=== PATIENT | female | born 1945 | race Caucasian/White ===

== ENCOUNTER 2017-01-16 07:34 | Inpatient (IN) | payer OTHER ==
[2016-12-18 13:20] VITALS: BMI 37.0
--- NOTE | 2016-12-18 13:49 | PAT Medication Instructions ---
Service Date Dec 18, 2016. Current Home Medication List Allopurinol (Zyloprim), 200 MG PO QAM Aspirin (Aspirin Ec), 81 MG PO QAM Cholecalciferol (Vitamin D), 1 TAB PO QAM Hydrochlorothiazide (Hctz *), 12.5 MG PO QAM Levothyroxine Sodium (Levothyroxine Sodium), 1 TAB PO 5XWEEK Levothyroxine Sodium (Levothyroxine Sodium), 1 TAB PO 2XWEEK Lisinopril (Zestril), 30 MG PO QAM Omeprazole (Prilosec), 20 MG PO HS Medication Instructions For Your Scheduled Surgery - Hold the following medications the morning of surgery: Lisinopril (Zestril), 30 MG PO QAM Hydrochlorothiazide (Hctz *), 12.5 MG PO QAM Cholecalciferol (Vitamin D), 1 TAB PO QAM - Take the following medications the morning of surgery with a sip of water: Levothyroxine Sodium (Levothyroxine Sodium), 1 TAB PO 5XWEEK Levothyroxine Sodium (Levothyroxine Sodium), 1 TAB PO 2XWEEK Allopurinol (Zyloprim), 200 MG PO QAM Aspirin (Aspirin Ec), 81 MG PO QAM (okay to continue per surgeon) - Take the following medications as scheduled the night before surgery: Omeprazole (Prilosec), 20 MG PO HS If you have any questions please call us at [phone] or [phone] or [phone]
--- NOTE | 2016-12-18 14:28 | DIAGNOSTIC IMAGING REPORT ---
CHEST 2 VIEWS ROUTINE CLINICAL HISTORY: Preoperative chest COMPARISON STUDY: No previous studies for comparison. FINDINGS: The cardiac and mediastinal contours are normal. There is no evidence of focal pulmonary consolidation. There is no evidence of failure. No pleural effusions are visualized.[ There is a retrocardiac opacity consistent with a hiatal hernia IMPRESSION: No active disease in the chest. Electronically signed by: Davi Atkinson M.D. 12/18/2016 2:26 PM Dictated Date/Time: 12/18/2016 2:26 PM
[2016-12-18 14:52] LABS: BASO % 0.6 %; BASO ABS # 0.04 K/uL (0-0.2); COMPLETE YES; EOS % 2.8 %; HEMATOCRIT 34.6 % (37-47); IG% 0.1 %; LYMPH % 25.4 %; LYMPH ABS # 1.74 K/uL (1.2-3.4); MEAN CELL VOLUME 91.1 fL (80-100); MEAN CORPUSCULAR HEMOGLOBIN 28.2 pg (25-34); MEAN CORPUSCULAR HGB CONC 30.9 g/dl (32-36); MEAN PLATELET VOLUME 9.9 fL (7.4-10.4); MONO % 9.1 %; PLATELET COUNT 256 K/uL (130-400); WHITE BLOOD COUNT 6.84 K/uL (4.8-10.8)
[2016-12-18 15:02] LABS: URINE APPEARANCE CLEAR (CLEAR); URINE BILIRUBIN NEG (NEG); URINE COLOR YELLOW; URINE EPITHELIAL CELL AUTO >30 /lpf (0-5); URINE NITRITE NEG (NEG); URINE SPECIFIC GRAVITY 1.019 (1.000-1.030); UROBILINOGEN NEG (NEG); ZZUR CULT IF INDIC CLEAN CATCH NO
[2016-12-18 15:04] LABS: PARTIAL THROMBOPLASTIN RATIO 1.1; PROTHROMBIN TIME (PATIENT) 10.6 SECONDS (9.0-12.0)
[2016-12-18 15:04] LABS: MANUAL MICROSCOPIC REQUIRED? NO; REVIEW REQ? NO
[2016-12-18 16:24] LABS: ESTIMATED AVERAGE GLUCOSE 128 mg/dl; HA1C FLAG Normal (Normal)
[2016-12-18 17:09] LABS: BUN/CREATININE RATIO 14.5 (10-20); CALCIUM 9.2 mg/dl (8.5-10.1); CREATININE 1.3 mg/dl (0.60-1.20); POTASSIUM 4.4 mmol/L (3.5-5.1)
--- NOTE | 2017-01-15 18:32 | HISTORY & PHYSICAL EXAMINATION ---
DATE OF ADMISSION: 01/16/2017 CHIEF COMPLAINT: Left knee pain. HISTORY OF PRESENT ILLNESS: This is a 71-year-old female patient of Dr. Miller, complaining of chronic left knee pain, longstanding, now progressively getting worse. The patient has failed conservative treatment including intraarticular injections, physical therapy, anti-inflammatories and the use of a brace and a cane. The patient has increased pain with weightbearing activities and her pain does interfere with her activities of daily living. PAST MEDICAL HISTORY: Hypertension, hypothyroidism, acid reflux, and obesity. SOCIAL HISTORY: Nonsmoker and nondrinker. FAMILY HISTORY: Noncontributory. REVIEW OF SYSTEMS: The patient complains of chronic left knee pain and instability. Otherwise, denies any shortness of breath, chest pain, nausea, vomiting or any other joint complaints. MEDICATIONS: 1. Prilosec 20 mg daily. 2. Hydrochlorothiazide 12.5 mg daily. 3. Levothyroxine 100 mcg daily. 4. Allopurinol 100 mg daily. 5. Lisinopril 20 mg daily. 6. Aspirin 81 mg daily. 7. Vitamin D 1000 international units daily. ALLERGIES: No known drug allergies. PHYSICAL EXAMINATION: GENERAL: Well-developed and well-nourished 71-year-old female in no acute distress. She is alert and oriented x3 and pleasant. HEENT: Normocephalic and atraumatic. Extraocular muscles are intact. Pupils are equal and reactive to light. HEART: Regular rate and rhythm. No murmurs appreciated. LUNGS: Clear. ABDOMEN: Soft and nontender. Bowel sounds are present. EXTREMITIES: Left knee reveals crepitation with limited range of motion. She has medial joint line tenderness. She has 5/5 strength. NEUROLOGIC: Neurovascularly, she is intact in her left lower extremity. DIAGNOSES: Left knee end-stage osteoarthritis per clinical and radiographic exam with a history of hypertension, hypothyroidism, acid reflux, and obesity. PLAN: The patient was advised of her diagnoses. Indications, risks, benefits, and postop course have all been reviewed. The patient wishes to proceed with a left total knee arthroplasty. Necessary consent forms, preoperative testing and clearances will be obtained. ANAMARIA
[2017-01-16] VITALS (9 sets, daily range): BP systolic 115–153; BP diastolic 70–93; PULSE 73–85; TEMP 36.4–36.7; O2SAT 92–97; Ht 157.5 cm; Wt 93.4 kg
[~2017-01-16] VITALS: Ht 157.5 cm; Wt 93.4 kg
[~2017-01-16 07:34] MED LIST: ACETAMINOPHEN 500 MG TAB PO SCH; ALLO100T PO; ASPI81TA28 PO; BUPIVACAINE 0.25% 30 ML VIAL ONE; BUPIVACAINE 0.5 % 5 MG/1 ML PF 10ML VIAL ONE; CEFAZOLIN 2000 MG/60 ML D5W 60 ML IV SCH; CHOL20009 PO; CeleBREX 200 MG CAP PO SCH; DEXAMETHASONE 4 MG TAB PO SCH; FAMOTIDINE 20 MG TAB PO SCH; GABAPENTIN 300 MG CAP PO SCH; HYDC25 PO; LACTATED RINGER'S 1000ML 1,000 ML IV SCH; LACTATED RINGER'S 1000ML IV SCH; LEVO100T7 PO; LEVO50TA6 PO; LISI-725 PO; METOCLOPRAMIDE HCL 10 MG TAB PO SCH; PRLSR20 PO; ROPIVACAINE 5MG/ML 30 ML 150 MG, BUPIVACAINE/EPINEPHR 0.5% MPF 30 ML, KETOROLAC TROMETH... INFIL SCH
[2017-01-16] MEDS ORDERED: MIDAZOLAM HCL 1 MG/ML 2ML VIAL ONE ×3 (08:09→12:19)
--- NOTE | 2017-01-16 08:40 | History & Physical Bridge Note ---
H&P Re-Evaluation Bridge Note: I have examined the patient, reviewed the History & Physical and in the interval since the performance of the History & Physical I have noted the following changes of clinical significance: No changes noted
[2017-01-16] MEDS ORDERED: FENTANYL CITRATE INJ 50 MCG/1 ML 2 ML VIAL IV PRN (08:45)
[2017-01-16] MEDS ORDERED: ONDANSETRON INJ 2 MG/ML 2 ML VIAL IV PRN ×2 (08:45→13:30)
[2017-01-16] MEDS ORDERED: EpHEDrine SULFATE INJ 50 MG/ML AMP IV PRN (08:45)
[2017-01-16] MEDS ORDERED: POVIDONE-IODINE OP SOLN 30 ML BTL ONE (08:45)
[2017-01-16] MEDS ORDERED: BACITRACIN 50000 UNIT VIAL ONE (08:45)
[2017-01-16] MEDS ORDERED: ATROPINE SULFATE 0.1 MG/ML 5ML SYR IV PRN (08:45)
[2017-01-16] MEDS ORDERED: ORTHO JOINT ANESTHETIC ONE (08:45)
[2017-01-16] MEDS ORDERED: PROPOFOL IV EMULSION 10 MG/ML 20 ML VIAL IV ONE (08:46)
[2017-01-16] MEDS: TRANEXAMIC ACID INJ 1,000 MG in SODIUM CHLORIDE 0.9% 100ML 100 ML IV SCH ×2 (10:54→14:38)
[2017-01-16] MEDS ORDERED: BUPIVACAINE 0.5 % 5 MG/1 ML PF 10ML VIAL ONE (11:31)
[2017-01-16] MEDS ORDERED: ONDANSETRON INJ 2 MG/ML 2 ML VIAL ONE (11:58)
[2017-01-16] MEDS ORDERED: PHENYLEPHRINE 100MCG/ML 5ML SYR ONE (12:51)
--- NOTE | 2017-01-16 13:03 | [facility] Post Operative Brief Note ---
Immediate Operative Summary Operative Date Jan 16, 2017. Pre-Operative Diagnosis Left Knee End-Stage Osteoarthritis Post-Operative Diagnosis Left Knee End-Stage Osteoarthritis Procedure(s) Performed Left Total Knee Arthroplasty Surgeon Dr Miller Automotive Technician Instructor Surgeon(s) Jean Paul Sanchez PA-C Estimated Blood Loss 5cc Findings grade 4 djd medial varus knee Specimens As Per Surgeon A. Left Knee Bone and Tissue Drains 2 hemovac Anesthesia spinal regional block and othomix Complication(s) None Disposition Recovery Room / PACU
[2017-01-16] MEDS ORDERED: MoRPHine SULFATE 4 MG/ML 1 ML CARP\\VIAL IV PRN (13:30)
[2017-01-16] MEDS ORDERED: ALUMINUM/MAGNESIUM/SIMETH (MAALOX MAX) 30 ML UDC PO PRN (13:30)
[2017-01-16] MEDS ORDERED: MoRPHine SULFATE 2 MG/ML CARP IV PRN (13:30)
[2017-01-16] MEDS ORDERED: MAGNESIUM HYDROXIDE SUSP 30 ML UDC PO PRN (13:30)
[2017-01-16] MEDS ORDERED: BISACODYL 10 MG SUPP PR PRN (13:30)
[2017-01-16] MEDS ORDERED: OXYCODONE HCL IR 5 MG TAB (IMMEDIATE RELEASE) PO PRN (13:30)
[2017-01-16] MEDS ORDERED: TRAMADOL HCL 50 MG TAB PO PRN (13:30)
--- NOTE | 2017-01-16 13:43 | Anesthesiology Progress Note ---
Anesthesia Post Op Note Date & Time Jan 16, 2017 at 13:43 Vital Signs Pain Intensity: 0 Vital Signs Past 12 Hours Date Time Temp Pulse Resp B/P (MAP) Pulse Ox O2 Delivery O2 Flow Rate FiO2 01/16/17 13:35 83 20 135/77 96 Mask 10 01/16/17 13:25 83 20 141/73 98 Mask 10 01/16/17 13:18 37.4 89 20 145/67 97 Mask 10 01/16/17 08:02 36.7 77 18 153/93 96 Room Air Notes Mental Status: alert / awake / arousable, participated in evaluation Pt Amnestic to Procedure: Yes Nausea / Vomiting: adequately controlled Pain: adequately controlled Airway Patency, RR, SpO2: stable & adequate BP & HR: stable & adequate Hydration State: stable & adequate Neuraxial Anesthesia: was administered, sensory block is resolving Anesthetic Complications: no major complications apparent
--- NOTE | 2017-01-16 13:45 | DIAGNOSTIC IMAGING REPORT ---
LEFT KNEE 1 OR 2 VIEWS ROUTINE CLINICAL HISTORY: AP/LATERAL IN PACU LEFT KNEE joint replacement COMPARISON: None. DISCUSSION: Total left knee arthroplasty. Good contact between prosthetic and underlying bone. Surgical drains are in position. Lucencies overlying the medial femoral epicondyles and medial tibial plateau felt to be overlap artifact. These are not seen on the lateral projections. Expected soft tissue postoperative change IMPRESSION: Anatomic alignment status post total joint replacement. The above report was generated using voice recognition software. It may contain grammatical, syntax or spelling errors. Electronically signed by: Reynaldo Jacome M.D. 01/16/2017 1:44 PM Dictated Date/Time: 01/16/2017 1:42 PM
[2017-01-16] MEDS ORDERED: SIMETHICONE 80 MG CHEW PO PRN (15:00)
--- NOTE | 2017-01-16 15:09 | Medical Consult ---
Consultation Date of Consultation: Jan 16, 2017. Attending Physician: Cash Miller M.D. Family History FH: CAD (coronary artery disease) MOTHER Hypertension MOTHER Social History Smoking Status: Never Smoker Smokeless Tobacco Use: No Alcohol Use: none Marital Status: Allergies Coded Allergies: No Known Allergies (Verified , 01/16/17) Home Medications Active Reported Zyloprim (Allopurinol) 100 Mg Tab 200 Mg PO QAM Levothyroxine Sodium 50 Mcg Tab 1 Tab PO 2XWEEK 90 Days AM Sat Levothyroxine Sodium 100 Mcg Tab 1 Tab PO 5XWEEK 90 Days AM-Sat Vitamin D (Cholecalciferol) 2,000 Unit Tab 1 Tab PO QAM Aspirin Ec (Aspirin) 81 Mg Tab 81 Mg PO QAM Prilosec (Omeprazole) 20 Mg Capcr 20 Mg PO HS Zestril (Lisinopril) 20 Mg Tab 30 Mg PO QAM Hctz * (Hydrochlorothiazide) 25 Mg Tab 12.5 Mg PO QAM Current Inpatient Medications Current Inpatient Medications Medications (Trade) Dose Ordered Sig/Chelo Route Start Time Stop Time Status Last Admin Dose Admin Cefazolin Sodium 60 ml @ 100 mls/hr PREOP IV 01/16/17 06:00 01/16/17 18:00 01/16/17 11:15 100 MLS/HR Acetaminophen (Tylenol Tab) 1,000 mg PREOP PO 01/16/17 06:00 01/16/17 18:00 01/16/17 08:21 1,000 MG Celecoxib (CeleBREX CAP) 200 mg PREOP PO 01/16/17 06:00 01/16/17 18:00 01/16/17 08:20 200 MG Dexamethasone (Decadron Tab) 8 mg PREOP PO 01/16/17 06:00 01/16/17 18:00 01/16/17 08:22 8 MG Famotidine (Pepcid Tab) 20 mg PREOP PO 01/16/17 06:00 01/16/17 18:00 01/16/17 08:20 20 MG Gabapentin (Neurontin Cap) 300 mg PREOP PO 01/16/17 06:00 01/16/17 18:00 01/16/17 08:21 300 MG Metoclopramide HCl (Reglan Tab) 10 mg PREOP PO 01/16/17 06:00 01/16/17 18:00 01/16/17 08:21 10 MG Tranexamic Acid 1000 mg/Sodium Chloride 110 ml @ 660 mls/hr TODAY@06,0630 IV 01/16/17 06:00 01/16/17 18:00 01/16/17 10:54 660 MLS/HR Allopurinol (Zyloprim Tab) 200 mg QAM PO 01/17/17 09:00 02/16/17 08:59 Levothyroxine Sodium (Synthroid Tab) 100 mcg DAILY PO 01/17/17 09:00 02/16/17 08:59 UNV Lisinopril (Zestril Tab) 30 mg QAM PO 01/17/17 09:00 02/16/17 08:59 UNV Cholecalciferol (Vitamin D Tab) 2,000 inter.unit QAM PO 01/17/17 09:00 02/16/17 08:59 UNV Morphine Sulfate (MoRPHine SULFATE INJ) 2 mg Q4HWA PRN IV 01/16/17 13:30 01/30/17 13:29 Morphine Sulfate (MoRPHine SULFATE INJ) 4 mg Q4HWA PRN IV 01/16/17 13:30 01/30/17 13:29 Potassium Chloride/Dextrose/ Sod Cl 1,000 ml @ 100 mls/hr Q10H IV 01/16/17 15:30 01/17/17 15:29 Cefazolin Sodium 2000 mg/Dextrose 60 ml @ 100 mls/hr Q8H IV 01/16/17 13:30 01/16/17 22:05 UNV Oxycodone HCl (Roxicodone Immediate Rel Tab) 1 TABLET FOR PAIN RATING... Q4H PRN PO 01/16/17 13:30 01/30/17 13:29 Acetaminophen (Tylenol Tab) 1,000 mg Q8H PO 01/16/17 13:30 02/15/17 13:29 UNV Magnesium Hydroxide (Milk Of Magnesia Susp) 30 ml Q6H PRN PO 01/16/17 13:30 02/15/17 13:29 Bisacodyl (Dulcolax Supp) 10 mg DAILY PRN AL 01/16/17 13:30 02/15/17 13:29 Senna (Senokot Tab) 17.2 mg HS PO 01/16/17 21:00 02/15/17 20:59 UNV Docusate Sodium (coLACE CAP) 100 mg BID PO 01/16/17 21:00 02/15/17 20:59 UNV Al Hydrox/Mg Hydrox/Simethicone (Maalox Max Susp) 15 ml Q4H PRN PO 01/16/17 13:30 02/15/17 13:29 Multivitamins (Multivitamin Tab) 1 tab QAM PO 01/17/17 09:00 02/16/17 08:59 UNV Ondansetron HCl (Zofran Inj) 4 mg Q6H PRN IV 01/16/17 13:30 02/15/17 13:29 Ferrous Gluconate (Ferrous Gluconate Tab) 324 mg TIDM PO 01/16/17 17:45 02/15/17 17:59 UNV Pantoprazole Sodium (Protonix Tab) 40 mg QAM PO 01/17/17 09:00 02/16/17 08:59 UNV Tramadol HCl (Ultram Tab) 1 tablet for pain rating... Q4H PRN PO 01/16/17 13:30 02/15/17 13:29 Aspirin (Ecotrin Tab) 81 mg BID PO 01/16/17 21:00 02/15/17 20:59 UNV Review of Systems Constitutional: No fever Eyes: No worsening of vision, No eye pain ENT: No sore throat Respiratory: No cough, No shortness of breath, No dyspnea at rest, No hemoptysis Cardiovascular: No chest pain, No palpitations Abdomen: No pain, No nausea, No vomiting Musculoskeletal: No calf pain Genitourinary - Female: No dysuria Neurologic: No numbness/tingling Psychiatric: No substance abuse Endocrine: No fatigue Physical Exam Date Time Temp Pulse Resp B/P (MAP) Pulse Ox O2 Delivery O2 Flow Rate FiO2 01/16/17 15:00 78 16 136/83 (100) 97 Nasal Cannula 2.0 01/16/17 14:30 75 16 143/87 (105) 96 Room Air 01/16/17 14:00 36.4 84 16 145/80 (101) 95 Nasal Cannula 2.0 01/16/17 14:00 Nasal Cannula 2.0 01/16/17 14:00 95 Nasal Cannula 2.0 01/16/17 13:45 37.1 80 16 148/74 96 Nasal Cannula 2 01/16/17 13:35 83 20 135/77 96 Mask 10 01/16/17 13:25 83 20 141/73 98 Mask 10 01/16/17 13:18 37.4 89 20 145/67 97 Mask 10 01/16/17 08:02 36.7 77 18 153/93 96 Room Air General Appearance: no apparent distress Head: normocephalic, atraumatic Eyes: normal inspection, EOMI ENT: pharynx normal Neck: no JVD Respiratory/Chest: chest non-tender, lungs clear, normal breath sounds, no respiratory distress, no accessory muscle use Cardiovascular: regular rate, rhythm, no edema, no JVD, no murmur Abdomen/GI: normal bowel sounds, non tender, soft Back: normal inspection, no muscle spasm Extremities/Musculoskelatal: no pedal edema Neurologic/Psych: alert, normal mood/affect, oriented x 3 Skin: no rash Laboratory Results Last 24 Hours Test 01/16/17 13:55 Assessment & Plan 71 year old F under orthopedic service s/p left total knee arthoplasty. Hospitalist Medicine service consulted on post-op care. Patient is awake and alert breathing comfortably on room air and answering questions, not in pain. Wound vac is on left leg and which is the operated leg and in leg supports. Distal pulses are intact and patient able to move toes. Lungs are clear and heart rate is regular. Medications as entered in the computer records were reviewed with the patient: Zyloprim (Allopurinol) 100 Mg Tab 200 Mg PO QAM Levothyroxine Sodium 50 Mcg Tab 1 Tab PO 2XWEEK 90 Days AM Sat Levothyroxine Sodium 100 Mcg Tab 1 Tab PO 5XWEEK 90 Days AM-Sat SUN Vitamin D (Cholecalciferol) 2,000 Unit Tab 1 Tab PO QAM Aspirin Ec (Aspirin) 81 Mg Tab 81 Mg PO QAM Prilosec (Omeprazole) 20 Mg Capcr 20 Mg PO HS Zestril (Lisinopril) 20 Mg Tab 30 Mg PO QAM Hctz * (Hydrochlorothiazide) 25 Mg Tab 12.5 Mg PO QAM -Please make following changes to Levothyroxine regimen: switch to Levothyroxine 50 mcg on every Saturday AM and Thursday AM and continue 100 mcg daily in the AM for other days -Please check renal function comprehensive metabolic panel before restarting HCTZ diuretic for blood pressure control. Avoid diuretics if in acute kidney injury -Please check post-op CBC. Of note that patient has had history of normocytic anemia as outpatient and that that does not appear to be recent iron studies in outpatient electronic medical records.
[2017-01-16] MEDS: D5W AND 1/2NSS + 20MEQ KCL 1,000 ML IV SCH (16:14)
[2017-01-16] MEDS: FERROUS GLUCONATE 324 MG TAB PO SCH (17:56)
[2017-01-16] MEDS: CEFAZOLIN IV 2,000 MG in DEXTROSE 5% 50ML 50 ML IV SCH (20:33)
[2017-01-16] MEDS: SENNA 8.6 MG TAB PO SCH (20:36)
[2017-01-16] MEDS: ASPIRIN 81 MG ECTAB PO SCH (20:36)
[2017-01-16] MEDS: DOCUSATE SODIUM 100 MG CAP PO SCH (20:36)
[2017-01-16] MEDS: ACETAMINOPHEN 500 MG TAB PO SCH (21:40)
[2017-01-17] VITALS (7 sets, daily range): BP systolic 110–174; BP diastolic 70–85; PULSE 61–80; TEMP 36.3–36.7; O2SAT 94–98
--- NOTE | 2017-01-17 00:25 | OPERATIVE REPORT ---
DATE OF OPERATION: 01/16/2017 INDICATION FOR PROCEDURE: The patient is a 71-year-old female who presents with chronic left knee osteoarthritis. She has an x-ray demonstrating varus knee, [id number] medial compartment. She has failed conservative management. PREOPERATIVE DIAGNOSIS: End-stage osteoarthritis, left knee. POSTOPERATIVE DIAGNOSIS: Same. PROCEDURE: Left total knee arthroplasty. SURGEON: Dr. Miller. RESEARCH ASSISTANT PROFESSOR: KEI Hall. ANESTHESIA: Spinal sedation, adductor nerve block and Orthomix. OPERATIVE PROCEDURE: The patient was taken to the operating room and anesthetized under anesthesia as dictated. She was placed supine on the operating room table. Pneumatic tourniquet was placed on the left upper obese thigh. A sandbag was placed under her hip. Her left lower extremity was prepped and draped in sterile fashion. Exam demonstrates she had 0 through 125 degrees range of motion. She had no instability. Left leg was sterilely prepped and draped with ChloraPrep. The leg was elevated, exsanguinated with Esmarch bandage. Pneumatic tourniquet was raised to 350 mmHg because of her obesity. Anterior incision was made across left knee. Skin was incised sharply. Subcutaneous flaps were elevated. Incision was made through medial retinaculum, extended up into the mid third of the quadriceps tendon and extended down to the medial tibial tubercle. Intra-articular findings demonstrated that she had grade 4 DJD medial compartment, bone on bone medial compartment. She had some grade 3 wear in the patellofemoral joint as well. I used the [employer] Journey 2.0 total knee arthroplasty system using Visionaire MRI templating size for a 3 femur, 3 tibia. To expose the knee, the infrapatellar fat pad was resected. The lateral synovial bands were released. The fat pad over the anterior femur was resected and the cruciate ligaments and meniscal remnants were resected. The femur was exposed. The custom femoral cutting block was pinned in position. Distal femoral cut was made. This allowed us to extend the knee, navneet the patella easily and a subperiosteal peel lateral release around the patella. The patella width was measured and width was reproduced using a freehand cut technique and a 32 mm patellar component. Drill holes for the patella were made and the excess lateral facet was beveled off to prevent any impingement. Then attention was taken back to the femur and the 5-in-1 cutting block was pinned in position and the anterior, posterior and chamfer cuts were made. Then the tibia was subluxed and the tibial cutting block was pinned in position and the proximal tibial cut was made with the oscillating saw. Then we used the laminar medical biller/coder to assess ligamentous balance and the ligaments were balanced in extension and flexion. The tibia was re-exposed and the 3 tibial baseplate was externally rotated in line with the tibial tubercle and pinned in position. The punch for the stem was used. Then the femoral trial was inserted and centered as the size 3 femoral trial. Then the notch cutting devices were used. A collet was placed and then an 11 insert gave balanced ligaments through full range of motion and patella tracked centrally. Trials were removed. The Orthomix anesthetic cocktail was injected per protocol. Then after copious irrigation with pulsatile lavage antibiotic solution and bacitracin, the final components were cemented with Simplex G cement. The final components were the 3 Oxinium left posterior stabilized [employer]hew Journey 2.0 femoral component, the 3 primary tibial baseplate, the 30 mm high flex posterior stabilized poly insert and the 32 mm patella. The Betadine soak was used per protocol. The knee was placed in full extension, allowing the cement to cure. Then the knee was again copiously irrigated with antibiotic solution and bacitracin. The quadriceps tendon and medial retinaculum were closed with interrupted [id number] #1 Vicryl sutures. The subcutaneous tissues closed with interrupted 2-0 Vicryl, skin closed with alec. Sterile dressings were applied and the patient tolerated the procedure well. KEI Hall was my administrative assistant office manager. He functioned as administrative assistant office manager for the tasks of soft tissue retraction, instrument management and he performed the fascial, subcutaneous and skin closure and will participate in the postoperative care of the patient. I attest to the content of the Intraoperative Record and any orders documented therein. Any exception s are noted below.
[2017-01-17] MEDS: D5W AND 1/2NSS + 20MEQ KCL 1,000 ML IV SCH ×2 (01:37→11:30)
[2017-01-17] MEDS: CEFAZOLIN IV 2,000 MG in DEXTROSE 5% 50ML 50 ML IV SCH (04:08)
[2017-01-17] MEDS: ACETAMINOPHEN 500 MG TAB PO SCH ×3 (05:39→21:18)
[2017-01-17 05:43] LABS: HEMATOCRIT 28.7 % (37-47); MEAN CELL VOLUME 91.1 fL (80-100); MEAN CORPUSCULAR HEMOGLOBIN 28.6 pg (25-34); MEAN CORPUSCULAR HGB CONC 31.4 g/dl (32-36); MEAN PLATELET VOLUME 10.6 fL (7.4-10.4); PLATELET COUNT 220 K/uL (130-400); RED BLOOD COUNT 3.15 M/uL (4.2-5.4); WHITE BLOOD COUNT 13.28 K/uL (4.8-10.8)
[2017-01-17] MEDS ORDERED: LEVOTHYROXINE 50 MCG TAB PO SCH (06:00)
[2017-01-17 06:15] LABS: BUN/CREATININE RATIO 12.2 (10-20); CALCIUM 8.2 mg/dl (8.5-10.1); CREATININE 1.4 mg/dl (0.60-1.20); POTASSIUM 4.3 mmol/L (3.5-5.1)
--- NOTE | 2017-01-17 07:44 | Orthopedic Progress Note ---
Orthopedic Progress Note Date of Service Jan 17, 2017. Subjective Post OP Day: 1 Reports: feeling well, Denies: chest pain, SOB, nausea / vomiting, light headedness, calf pain Objective calves soft nontender, N/V intact, dressing C/D/I, A&O x3, toes mobile, hemovac drainage (225/150cc per shift) Date Time Temp Pulse Resp B/P (MAP) Pulse Ox O2 Delivery O2 Flow Rate FiO2 01/17/17 07:19 36.3 75 16 110/70 (83) 94 Room Air 01/17/17 03:05 36.7 77 18 120/71 (87) 95 Room Air 01/16/17 23:35 Room Air 01/16/17 23:09 36.4 75 17 115/70 (85) 95 Room Air 01/16/17 19:33 36.5 73 16 149/83 (105) 94 Room Air 01/16/17 17:04 36.4 82 16 136/80 (98) 96 Room Air 01/16/17 16:05 36.5 75 16 137/85 (102) 97 Room Air 01/16/17 15:45 Room Air 01/16/17 15:00 78 16 136/83 (100) 97 Nasal Cannula 2.0 01/16/17 14:30 75 16 143/87 (105) 96 Room Air 01/16/17 14:00 36.4 84 16 145/80 (101) 95 Nasal Cannula 2.0 01/16/17 14:00 Nasal Cannula 2.0 01/16/17 14:00 95 Nasal Cannula 2.0 01/16/17 13:45 37.1 80 16 148/74 96 Nasal Cannula 2 01/16/17 13:35 83 20 135/77 96 Mask 10 01/16/17 13:25 83 20 141/73 98 Mask 10 01/16/17 13:18 37.4 89 20 145/67 97 Mask 10 01/16/17 08:02 36.7 77 18 153/93 96 Room Air Laboratory Results 24 Hours: Test 01/17/17 05:03 Hematocrit 28.7 % Hemoglobin 9.0 g/dL Assessment & Plan Assessment: POD#1 sp left TKA Inhouse Planning Pain Management: Celebrex, PO Tylenol, Oxy IR DVT Prophylaxis: TEDs, SCDs, ASA Discharge Planning Discharge Planning: home with oppt ([facility] DC TOMORROW WITH PT AT [facility].)
[2017-01-17] MEDS: FERROUS GLUCONATE 324 MG TAB PO SCH ×3 (08:40→17:26)
[2017-01-17] MEDS: DOCUSATE SODIUM 100 MG CAP PO SCH ×2 (08:40→21:17)
[2017-01-17] MEDS: ASPIRIN 81 MG ECTAB PO SCH ×2 (08:40→21:17)
[2017-01-17] MEDS: CHOLECALCIFEROL 1000 INTER.UNIT TAB PO SCH (08:41)
[2017-01-17] MEDS: MULTIVITAMIN TAB PO SCH (08:41)
[2017-01-17] MEDS: PANTOprazole SOD 40 MG TAB PO SCH (08:41)
[2017-01-17] MEDS: ALLOPURINOL 100 MG TAB PO SCH (08:42)
[2017-01-17] MEDS ORDERED: LISINOPRIL 20 MG TAB PO SCH (09:00)
[2017-01-17] MEDS ORDERED: LEVOTHYROXINE 100 MCG TAB PO SCH (09:00)
--- NOTE | 2017-01-17 18:21 | Progress Note ---
Internal Med Progress Note Date of Service: Jan 17, 2017. Provider Documentation: SUBJECTIVE: feels fine , minimum pain on left knee doing well with PT/OT OBJECTIVE: Vital Signs-as noted below Exam: General-no sign of distress Eyes-sclera non icteric ENT-NAD Neck-no JVD Lungs-CTA Heart-regular S1/S2 Abdomen-soft, non tender Extremities-s/p left knee surgery , drain present Neuro-AAO x3, no focal deficit Lab data as noted below. ASSESSMENT & PLAN: DJD OF LEFT KNEE : S/P TKA POD #1 recovering well post op cont PT/OT INDY ON CKD STAGE 3 Cr mildly elevated form baseline to 1.4 hold ACEI HCTZ been on hold already repeat PRP in AM ACUTE BLOOD LOSS ANEMIA : due to post op status HB stable in 10 follow no indication for transfusion HTN ACEI and HCTZ been on hold for INDY monitor antihypertensives can be resumed in AM if renal function improves HYPOTHYROIDISM : cont levothyroxine DVT PROPHYLAXIS Aspirin 81 mg BID per Ortho protocol DISPOSITION Per primary team Vital Signs: Date Time Temp Pulse Resp B/P (MAP) Pulse Ox O2 Delivery O2 Flow Rate FiO2 01/17/17 15:45 36.7 80 18 173/82 (112) 98 Room Air 01/17/17 10:32 36.5 65 16 153/84 (107) 98 Room Air 01/17/17 10:29 71 98 01/17/17 08:30 Room Air 01/17/17 07:19 36.3 75 16 110/70 (83) 94 Room Air 01/17/17 03:05 36.7 77 18 120/71 (87) 95 Room Air 01/16/17 23:35 Room Air 01/16/17 23:09 36.4 75 17 115/70 (85) 95 Room Air 01/16/17 19:33 36.5 73 16 149/83 (105) 94 Room Air Lab Results: Results Past 24 Hours Test 01/17/17 05:03 Range/Units White Blood Count 13.28 4.8-10.8 K/uL Red Blood Count 3.15 4.2-5.4 M/uL Hemoglobin 9.0 12.0-16.0 g/dL Hematocrit 28.7 37-47 % Mean Corpuscular Volume 91.1 80-100 fL Mean Corpuscular Hemoglobin 28.6 25-34 pg Mean Corpuscular Hemoglobin Concent 31.4 32-36 g/dl RDW Standard Deviation 51.7 36.4-46.3 fL RDW Coefficient of Variation 15.4 11.5-14.5 % Platelet Count 220 130-400 K/uL Mean Platelet Volume 10.6 7.4-10.4 fL Sodium Level 140 136-145 mmol/L Potassium Level 4.3 3.5-5.1 mmol/L Chloride Level 108 98-107 mmol/L Carbon Dioxide Level 29 21-32 mmol/L Anion Gap 3.0 3-11 mmol/L Blood Urea Nitrogen 17 7-18 mg/dl Creatinine 1.40 0.60-1.20 mg/dl Est Creatinine Clear Calc Drug Dose 39.8 ml/min Estimated GFR () 44.0 Estimated GFR (Non- 38.0 BUN/Creatinine Ratio 12.2 10-20 Random Glucose 148 70-99 mg/dl Calcium Level 8.2 8.5-10.1 mg/dl Hepatitis C Antibody Screen NEG NEG
[2017-01-17] MEDS: SENNA 8.6 MG TAB PO SCH (21:30)
[2017-01-18] MEDS ORDERED: LEVOTHYROXINE 100 MCG TAB PO SCH (06:00)
[2017-01-18] MEDS: ACETAMINOPHEN 500 MG TAB PO SCH (06:01)
[2017-01-18 06:19] VITALS: BP 167/77; PULSE 70; TEMP 36.7; O2SAT 97
[2017-01-18 06:40] LABS: BUN/CREATININE RATIO 13.6 (10-20); CREATININE 1.3 mg/dl (0.60-1.20)
--- NOTE | 2017-01-18 08:11 | Orthopedic Progress Note ---
Orthopedic Progress Note Date of Service Jan 18, 2017. Subjective Post OP Day: 2 Reports: feeling well, Denies: chest pain, SOB, nausea / vomiting, light headedness, calf pain Objective calves soft nontender, N/V intact, dressing C/D/I (SILVERLON), A&O x3, toes mobile Date Time Temp Pulse Resp B/P (MAP) Pulse Ox O2 Delivery O2 Flow Rate FiO2 01/18/17 07:15 Room Air 01/18/17 06:19 36.7 70 16 167/77 (107) 97 Room Air 01/17/17 23:57 Room Air 01/17/17 23:03 36.5 61 16 159/75 (103) 96 Room Air 01/17/17 22:03 143/77 (99) 01/17/17 16:00 Room Air 01/17/17 15:45 36.7 80 18 173/82 (112) 98 Room Air 01/17/17 10:32 36.5 65 16 153/84 (107) 98 Room Air 01/17/17 10:29 71 98 01/17/17 08:30 Room Air Assessment & Plan Assessment: POD#2 sp left TKA Inhouse Planning Pain Management: Celebrex, PO Tylenol, Oxy IR DVT Prophylaxis: TEDs, SCDs, ASA Discharge Planning Discharge Planning: home with oppt (DC HOME TOMORROW)
[2017-01-18 08:13] VITALS: BP 160/78; PULSE 110; TEMP 36.4; O2SAT 97
[2017-01-18] MEDS ORDERED: ACET-24 PO (08:13)
[2017-01-18] MEDS ORDERED: ONDA8TAB6 PO (08:13)
[2017-01-18] MEDS ORDERED: ASPI81TA28 PO (08:13)
[2017-01-18] MEDS ORDERED: RXC5 PO (08:13)
--- NOTE | 2017-01-18 08:14 | Discharge Instructions ---
Discharge Instructions Date of Service Jan 18, 2017. Admission Reason for Admission: Left Knee Degenerative Joint Disease Discharge Discharge Diagnosis / Problem: SP LEFT TKA Discharge Goals Goal(s): Decrease discomfort, Improve function, Increase independence Activity Recommendations Activity Limitations: per Instructions/Follow-up section . Instructions / Follow-Up Instructions / Follow-Up ACTIVITY RECOMMENDATIONS: SELF CARE INSTRUCTIONS AFTER TOTAL KNEE REPLACEMENT A. You may need to continue a physical therapy program after discharge from the hospital. There are several options available to you. Your doctor will assist you in selecting the best one for you. 1. An out-patient facility 2 to 3 times a week for therapy or home therapy. 2. Continue working on all exercises taught to you in the hospital. Your goals should be to increase bending of your knee to 90 degrees and beyond and to fully straighten your knee. B. You may progress at your own pace from walking with a walker or crutches to a cane; then to no assistive devices. C. Make walking a part of your daily routine. Be up as much as comfortable with rest periods throughout the day. Rest with leg elevation is very important. Use the ice wrap frequently for the first 3-4 weeks. D. There are no restrictions on activities. You may ride in a car, shop, participate in clinical laboratory assistant and all social activities. E. Wear the long elastic stockings (JANELLE hose) 20 hours a day for 2 weeks after surgery. They can be removed several times a day for laundering and for a bath. F. You may shower, no tub baths until cleared by your doctor. SPECIAL CARE INSTRUCTIONS: VERY IMPORTANT TO READ AND REVIEW A. There are a few signs you need to watch for after you are home. Call [facility] [place] if you notice any of the followin. Increased severe knee pain. Some pain is expected especially when you exercise. 2. Increased swelling in your leg or knee; pain or swelling of the calf muscle in either lower leg. 3. Any fluid drainage from the incision. 4. Shortness of breath or chest pain. B. Please call [facility] [place] at if you have any concerns or questions about your operation or recovery. The doctor or his nurse will return your call promptly. C. You must take antibiotics before dental work, bladder, bowel or other surgery. Your doctor will provide you with a permanent care to carry describing this precaution. IMPORTANT: * REMEMBER TO TAKE ASPIRIN, 81 MG, TWICE DAILY FOR 4 WEEKS UNLESS OTHERWISE DIRECTED. THIS IS YOUR BLOOD THINNER. * HIGH RISK PATIENTS MAY BE PRESCRIBED A STRONGER BLOOD THINNER. THIS WILL BE PROVIDED AT DISCHARGE. * CALL IF INCREASED PAIN, REDNESS, DRAINAGE OR FEVER GREATER THAT 101. * WEAR JANELLE HOSE 20 HOURS PER DAY FOR 2 WEEKS. * YOU MAY HAVE A LARGE BAND-AID LIKE DRESSING (SILVERON). THIS WILL REMAIN ON YOUR INCISION FOR 7 DAYS, THEN CAN BE REMOVED. IF INCISION IS LEAKING THROUGH DRESSING, CALL THE OFFICE . FOLLOW UP VISIT: If appointment is not already scheduled: Please call [facility] [place] to make a follow-up appointment for 2 weeks after your surgery at . Current Hospital Diet Patient's current hospital diet: Regular Diet Discharge Diet Recommended Diet: Regular Diet Procedures Procedures Performed: Left Total Knee Arthroplasty Pending Studies Studies pending at discharge: no Laboratory Results Hemoglobin A1c Test 12/18/16 13:55 Range/Units Estimated Average Glucose 128 mg/dl Hemoglobin A1c 6.1 H 4.5-5.6 % Medical Emergencies . Who to Call and When: Medical Emergencies: If at any time you feel your situation is an emergency, please call [phone] immediately. . Non-Emergent Contact Non-Emergency issues call your: Surgeon . "Provider Documentation" section prepared by Radha Botello. . VTE Core Measure Inpt VTE Proph given/why not?: Other Anticoagulation, T.E.D. Stockings, SCD's
[2017-01-18 08:15] VITALS: O2SAT 97
[2017-01-18 08:49] VITALS: BP 160/78; PULSE 110; TEMP 36.4; O2SAT 97
[2017-01-18] MEDS: CHOLECALCIFEROL 1000 INTER.UNIT TAB PO SCH (08:58)
[2017-01-18] MEDS: ALLOPURINOL 100 MG TAB PO SCH (08:58)
[2017-01-18] MEDS: FERROUS GLUCONATE 324 MG TAB PO SCH (08:59)
[2017-01-18] MEDS: PANTOprazole SOD 40 MG TAB PO SCH (08:59)
[2017-01-18] MEDS: MULTIVITAMIN TAB PO SCH (08:59)
[2017-01-18] MEDS: DOCUSATE SODIUM 100 MG CAP PO SCH (09:12)
[2017-01-18] MEDS: ASPIRIN 81 MG ECTAB PO SCH (10:20)
--- NOTE | 2017-01-18 13:16 | DISCHARGE SUMMARY ---
DISCHARGE DIAGNOSIS: Degenerative joint disease left knee. SECONDARY DIAGNOSES: Hypertension, hypothyroidism, GERD, obesity. CONSULTS: Abran Kern M.D. COMPLICATIONS: None. PROCEDURES: Left total knee arthroplasty performed by Dr. Miller on 01/16/2017. BRIEF HISTORY: As dictated in history and physical. HOSPITAL SUMMARY: The patient was admitted on the above date and had the above-noted surgery performed which he tolerated well. On the first postoperative day, the patient was feeling well and had no complaints. Calves were soft, nontender, neurovascularly intact. Dressings clean, dry and intact. Toes were mobile. Vital signs were stable. She is afebrile. Hemoglobin was 9.0. She was started on physical therapy protocol and continued on DVT prophylaxis and pain management and medical management. By her second postoperative day, she was feeling well and had no complaints. Calves were soft, nontender. Neurovascular was intact. Dressings were clean, dry and intact. Toes were mobile. Vital signs were stable and she was afebrile. She was progressing well with her PT and it was felt she could be discharged to home. For further review, please see chart. LAB AND X-RAY DATA: As per chart. DISCHARGE INSTRUCTIONS: The patient was discharged to home in satisfactory condition on 01/18/2017. DIET: Regular. ACTIVITY: Follow TK instruction sheets and special care instructions as noted. Follow up with Dr. Miller in 2 weeks. The patient to call for appointment if one has not been made for you. DISCHARGE MEDICATIONS: Acetaminophen 1000 mg p.o. q. 8 hours, Zofran 8 mg p.o. q. 8 hours p.r.n. nausea, oxycodone 5-10 mg p.o. q. 4 hours p.r.n. Resume home meds as listed. Change aspirin to 81 mg p.o. b.i.d. for 30 days, after 30 days resume once daily dosing.
== END 2017-01-18 10:43 | disposition home or self-care (01) | DRG 470 ==
LOC: C.ACU 07:34 → C.3E 13:33 → ENRESERV 13:42
PROVIDERS: ADMIT Orthopaedic Surgery Sports Medicine; ATTEND Orthopaedic Surgery Sports Medicine
PROC: 0SRD0J9 Replacement of Left Knee Joint with Synthetic Substitute, Cemented, Open Approach (ICD-10-PCS; principal; 2017-01-16 10:00)
DX: M17.12 Unilateral primary osteoarthritis, left knee (principal); N17.9 Acute kidney failure, unspecified; D62 Acute posthemorrhagic anemia; I12.9 Hypertensive chronic kidney disease with stage 1 through stage 4 chronic kidney disease, or unspecified chronic kidney disease; N18.3 Chronic kidney disease, stage 3 (moderate); K21.9 Gastro-esophageal reflux disease without esophagitis; E66.9 Obesity, unspecified; E03.9 Hypothyroidism, unspecified; Z68.37 Body mass index [BMI] 37.0-37.9, adult; Z79.82 Long term (current) use of aspirin; Z79.899 Other long term (current) drug therapy; Z82.49 Family history of ischemic heart disease and other diseases of the circulatory system

== ENCOUNTER → 2018-01-16 | Outpatient (CLI) | payer OTHER ==
[~2018-01-16] MED LIST changes: +ACET-24 PO; -ACETAMINOPHEN 500 MG TAB PO SCH; -BUPIVACAINE 0.25% 30 ML VIAL ONE; -BUPIVACAINE 0.5 % 5 MG/1 ML PF 10ML VIAL ONE; -CEFAZOLIN 2000 MG/60 ML D5W 60 ML IV SCH; -CeleBREX 200 MG CAP PO SCH; -DEXAMETHASONE 4 MG TAB PO SCH; -FAMOTIDINE 20 MG TAB PO SCH; -GABAPENTIN 300 MG CAP PO SCH; -LACTATED RINGER'S 1000ML 1,000 ML IV SCH; -LACTATED RINGER'S 1000ML IV SCH; -METOCLOPRAMIDE HCL 10 MG TAB PO SCH; -ROPIVACAINE 5MG/ML 30 ML 150 MG, BUPIVACAINE/EPINEPHR 0.5% MPF 30 ML, KETOROLAC TROMETH... INFIL SCH; +RXC5 PO
[2018-01-16 18:36] LABS: ALBUMIN 3.5 gm/dl (3.4-5.0); CALCIUM 8.3 mg/dl (8.5-10.1)
== END | disposition home or self-care (01) ==
LOC: C.LABMFLN 14:40
PROVIDERS: ATTEND Internal Medicine Endocrinology, Diabetes & Metabolism
DX: E89.0 Postprocedural hypothyroidism (principal); C73 Malignant neoplasm of thyroid gland; E21.3 Hyperparathyroidism, unspecified; D35.00 Benign neoplasm of unspecified adrenal gland